=== PATIENT | male | born 1960 | race African-American/Black ===

== ENCOUNTER 2020-07-10 00:17 | Emergency (ER) | payer OTHER ==
--- NOTE | ~2020-07-10 | EMS ---
[place] [address] EMS Patient Care Report Name: KATHRYN SHERIFF Room #: REG JALIL Calvert#: [id number] Admission: 07/10/20 Attend Phys: Discharge: Date of : 62 Report #: [id number] THIS REPORT FOR: //name// Report Transmitted: 07/10/2020 00:59 EMS Care Summary [place], [place]/[facility] Incident [id number] @ 07/09/2020 23:14 Incident [id number] [place] [address] Patient KATHRYN SHERIFF Male, 60 Years 1960 Patient Address [address] [place] [address] Patient History Lung Cancer, Patient Allergies No known allergies, Patient Medications Oxygen, Prednisone, Lasix, Chief Complaint CARDIAC ARREST Disposition Transported [place] Dispatch Reason Cardiac Arrest/ Transported To [facility] Narrative EMS dispatched to [facility] for a cardiac arrest Upon arrival the pt was in the room lying on the floor on his 8 inch thick mattress while staff was trying to perform CPR, the [place] [address] EMS Patient Care Report Name: KATHRYN SHERIFF Room #: REG JALIL Calvert#: [id number] Admission: 07/10/20 Attend Phys: Discharge: Date of : 62 Report #: [id number] 2 lpm with a BVM by the [facility] staff. The pt's mattress was removed from under the pt and the pt was placed on the hard floor for CPR. Monitor pads were placed on the pt and CPR continued. A number 5 I gel was placed with End tidal on the I gel and BVM on End tidal. The pt was bagged about 10-12 breaths per minute. The End tidal occlusion was reading on the monitor so a second End tidal was replaced on the I gel which finally worked.. A Yellow IO was established in the L humoral head with a 500 bag of NS. The pt D-132. The pt was in Asystole and Epi was given and CPR continued as protocol states. A total of 7 Epi and 30 minutes of CPR were performed before contacting MD Epperson at [facility] for cardiac arrest termination. Termination was denied due to the pt's End tidal number and being 39 at the time of the report to [facility]. We were advised to continue CPR and ALS and transport to the closest facility. The pt was loaded onto the cot via scoop stretcher, secured to the cot and loaded into the ambulance. The pt was transported to [facility] with lights and sirens. 3 more Epi IV pushes were administered for a total of 10 Epi 1:10 give throughout the 54 minutes of CPR. the pt still remained in an Asystole rhythm or PEA rhythm of less than 40 upon arrival at [facility]. Pt was taken to room 1 where CPR and report continued to the attending physician. CPR continued to 0028 when TOD was called by the physician in [facility]. EMS returned to service. Full PPE was used during the arrest. Initial Vitals @23:30P: 150,EtCO2: 0, @23:39P: 45,R: 3,EtCO2: 58, @23:49P: 47,R: 17,EtCO2: 46, @23:28P: 98, @23:41P: 23,EtCO2: 83, @00:10P: 112,R: 9,EtCO2: 37, @23:46P: 62,EtCO2: 89, @23:29P: 131, @00:07R: 15,EtCO2: 51, @23:28P: 130, @23:43P: 39,R: 7,EtCO2: 52, @23:48P: 64,R: 16,EtCO2: 44, @23:33P: 34, @00:17P: 51,R: 32,EtCO2: 38, @23:33P: 38, @23:40P: 22,R: 32,EtCO2: 35, @23:33P: 134, @00:03P: 43,R: 4,EtCO2: 20, @23:44P: 50,R: 6,EtCO2: 80, @00:02P: 146,R: 9,EtCO2: 45, @23:58P: 143,R: 7,EtCO2: 44, @23:37R: 27,EtCO2: 77, @23:50P: 35,R: 15,EtCO2: 58, @00:14P: 179, [facility] [address] [place] [address] EMS Patient Care Report Name: KATHRYN SHERIFF Ayesha Room #: REG JALIL Calevrt#: [id number] Admission: 07/10/20 Attend Phys: Discharge: Date of : 62 Report #: [id number] @00:00P: 116,R: 6,EtCO2: 23, @23:37P: 34,R: 11,EtCO2: 64, @23:34P: 131,EtCO2: 0, @23:38P: 64,R: 9,EtCO2: 23, @23:45P: 43,EtCO2: 0, @00:08R: 7,EtCO2: 57, @23:26P: 35,R: 0,Pain: 0/10,GCS: 3, @23:36P: 128,Pain: 0/10,GCS: 3,EtCO2: 50,NC Suspected: false @00:14P: 86,R: 6,EtCO2: 21, @23:57P: 55,R: 10,EtCO2: 20, @00:15P: 36,R: 6,EtCO2: 42, @23:41P: 35,Glucose: 132,NC Suspected: false @23:54P: 146,R: 10,EtCO2: 47, @23:28P: 133, @00:05P: 144,R: 8,EtCO2: 18, @23:54P: 140,R: 12,EtCO2: 32, @00:12P: 65,R: 9,Pain: 0/10,GCS: 3,EtCO2: 41, @00:06P: 34,EtCO2: 56, @23:53P: 140,R: 17,Pain: 0/10,GCS: 3,EtCO2: 28,NC Suspected: false @00:12P: 108, @23:59P: 124,R: 11,EtCO2: 11, Assessments @23:30MENTAL:Unresponsive,SKIN:Pale,HEENT:Eyes: Left Pupil: 6-mm,Eyes: Right Pupil: 6-mm,Head/Face: No Abnormalities,Neck/Airway: No Abnormalities,LUNG SOUNDS:General: No Abnormalities,ABDOMEN:General: No Abnormalities,PELVIS//GI:No Abnormalities,EXTREMITIES:Capillary Refill: Right Upper: > 5 Sec,Capillary Refill: Left Upper: > 5 Sec,Left Arm: No Abnormalities,Right Arm: No Abnormalities,Left Leg: No Abnormalities,Right Leg: No Abnormalities,PULSE:Carotid: Absent,Radial: Absent,NEURO:No Abnormalities, Impression Cardiac arrest Procedures @23:54Epinephrine 1:10 - 1 Milligrams (mg) - Intraosseous (IO)Response: Unchanged@23:37Epinephrine 1:10 - 1 Milligrams (mg) - Intraosseous (IO)Response: Unchanged@00:14Epinephrine 1:10 - 1 Milligrams (mg) - Intraosseous (IO)Response: Unchanged@23:41Epinephrine 1:10 - 1 Milligrams (mg) - Intraosseous (IO)Response: Unchanged@23:28Epinephrine 1:10 - 1 Milligrams (mg) - Intraosseous (IO)Response: Unchanged@00:12Epinephrine 1:10 - 1 Milligrams (mg) - Intraosseous (IO)Response: Unchanged@23:33Epinephrine 1:10 - 1 Milligrams (mg) - Intraosseous (IO)Response: Unchanged@23:44Epinephrine 1:10 - 1 Milligrams (mg) - Intraosseous (IO)Response: Unchanged@23:48Epinephrine 1:10 - 1 Milligrams (mg) - Intraosseous (IO)Response: Unchanged@00:07Epinephrine 1:10 - 1 Milligrams (mg) - Intraosseous [address] [address] EMS Patient Care Report Name: KATHRYN SHERIFF Room #: REG JALIL Dyer.#: [id number] Admission: 07/10/20 Attend Phys: Discharge: Date of : 62 Report #: [id number] (IO)Response: Unchanged@23:24Response: UnchangedSucceeded@23:26Oxygen FlowRate: 15 Device: Bag Valve Mask (BVM) Response: UnchangedSucceeded@23:26iGEL Complications: Other (Not Listed),Response: UnchangedSucceeded@23:27Normal Saline (.9% NaCl) 1000cc (EZ-IO (Yellow 45mm)) Site: FB-Hcdohmw-BvvhKowjcqoq: UnchangedSucceeded Timeline 23:12,Call Received 23:12,Dispatch Notified 23:14,Dispatched 23:14,En Route 23:20,On Scene 23:21,At Patient 23:24,Response: UnchangedSucceeded, 23:26,Oxygen FlowRate: 15 Device: Bag Valve Mask (BVM) Response: UnchangedSucceeded, 23:26,iGEL Complications: Other (Not Listed),,Response: UnchangedSucceeded, 23:26,BP: / M,PULSE: 35,RR: 0 R,SPO2: Ox,ETCO2: ,BG: ,PAIN: 0,GCS: 3, 23:27,Normal Saline (.9% NaCl) 1000cc EZ-IO (Yellow 45mm) Site: JP-Xwxpxkx-Riaz,Response: UnchangedSucceeded, 23:28,BP: / M,PULSE: 133,RR: R,SPO2: Ox,ETCO2: ,BG: ,PAIN: ,GCS: , 23:28,Epinephrine 1:10 - 1 Milligrams (mg) - Intraosseous (IO),Response: Unchanged 23:28,BP: / M,PULSE: 130,RR: R,SPO2: Ox,ETCO2: ,BG: ,PAIN: ,GCS: , 23:28,BP: / M,PULSE: 98,RR: R,SPO2: Ox,ETCO2: ,BG: ,PAIN: ,GCS: , 23:29,BP: / M,PULSE: 131,RR: R,SPO2: Ox,ETCO2: ,BG: ,PAIN: ,GCS: , 23:30,BP: / M,PULSE: 150,RR: R,SPO2: Ox,ETCO2: 0 ,BG: ,PAIN: ,GCS: , 23:33,BP: / M,PULSE: 34,RR: R,SPO2: Ox,ETCO2: ,BG: ,PAIN: ,GCS: , 23:33,Epinephrine 1:10 - 1 Milligrams (mg) - Intraosseous (IO),Response: Unchanged 23:33,BP: / M,PULSE: 38,RR: R,SPO2: Ox,ETCO2: ,BG: ,PAIN: ,GCS: , 23:33,BP: / M,PULSE: 134,RR: R,SPO2: Ox,ETCO2: ,BG: ,PAIN: ,GCS: , 23:34,BP: / M,PULSE: 131,RR: R,SPO2: Ox,ETCO2: 0 ,BG: ,PAIN: ,GCS: , 23:36,BP: / M,PULSE: 128,RR: R,SPO2: Ox,ETCO2: 50 ,BG: ,PAIN: 0,GCS: 3, 23:37,BP: / M,PULSE: ,RR: 27 R,SPO2: Ox,ETCO2: 77 ,BG: ,PAIN: ,GCS: , 23:37,Epinephrine 1:10 - 1 Milligrams (mg) - Intraosseous (IO),Response: Unchanged 23:37,BP: / M,PULSE: 34,RR: 11 R,SPO2: Ox,ETCO2: 64 ,BG: ,PAIN: ,GCS: , 23:38,BP: / M,PULSE: 64,RR: 9 R,SPO2: Ox,ETCO2: 23 ,BG: ,PAIN: ,GCS: , 23:39,BP: / M,PULSE: 45,RR: 3 R,SPO2: Ox,ETCO2: 58 ,BG: ,PAIN: ,GCS: , 23:40,BP: / M,PULSE: 22,RR: 32 R,SPO2: Ox,ETCO2: 35 ,BG: ,PAIN: ,GCS: , 23:41,Epinephrine 1:10 - 1 Milligrams (mg) - Intraosseous (IO),Response: Unchanged 23:41,BP: / M,PULSE: 35,RR: R,SPO2: Ox,ETCO2: ,B,PAIN: ,GCS: , 23:41,BP: / M,PULSE: 23,RR: R,SPO2: Ox,ETCO2: 83 ,BG: ,PAIN: ,GCS: , 23:43,BP: / M,PULSE: 39,RR: 7 R,SPO2: Ox,ETCO2: 52 ,BG: ,PAIN: ,GCS: , [facility] [address] [place] [address] EMS Patient Care Report Name: KATHRYN SHERIFF Ayesha [facility] [id number] Admission: 07/10/20 Attend Phys: Discharge: Date of : 62 Report #: [id number] 23:44,Epinephrine 1:10 - 1 Milligrams (mg) - Intraosseous (IO),Response: Unchanged 23:44,BP: / M,PULSE: 50,RR: 6 R,SPO2: Ox,ETCO2: 80 ,BG: ,PAIN: ,GCS: , 23:45,BP: / M,PULSE: 43,RR: R,SPO2: Ox,ETCO2: 0 ,BG: ,PAIN: ,GCS: , 23:46,BP: / M,PULSE: 62,RR: R,SPO2: Ox,ETCO2: 89 ,BG: ,PAIN: ,GCS: , 23:48,Epinephrine 1:10 - 1 Milligrams (mg) - Intraosseous (IO),Response: Unchanged 23:48,BP: / M,PULSE: 64,RR: 16 R,SPO2: Ox,ETCO2: 44 ,BG: ,PAIN: ,GCS: , 23:49,BP: / M,PULSE: 47,RR: 17 R,SPO2: Ox,ETCO2: 46 ,BG: ,PAIN: ,GCS: , 23:50,BP: / M,PULSE: 35,RR: 15 R,SPO2: Ox,ETCO2: 58 ,BG: ,PAIN: ,GCS: , 23:53,BP: / M,PULSE: 140,RR: 17 R,SPO2: Ox,ETCO2: 28 ,BG: ,PAIN: 0,GCS: 3, 23:54,Epinephrine 1:10 - 1 Milligrams (mg) - Intraosseous (IO),Response: Unchanged 23:54,BP: / M,PULSE: 140,RR: 12 R,SPO2: Ox,ETCO2: 32 ,BG: ,PAIN: ,GCS: , 23:54,BP: / M,PULSE: 146,RR: 10 R,SPO2: Ox,ETCO2: 47 ,BG: ,PAIN: ,GCS: , 23:57,BP: / M,PULSE: 55,RR: 10 R,SPO2: Ox,ETCO2: 20 ,BG: ,PAIN: ,GCS: , 23:58,BP: / M,PULSE: 143,RR: 7 R,SPO2: Ox,ETCO2: 44 ,BG: ,PAIN: ,GCS: , 23:59,BP: / M,PULSE: 124,RR: 11 R,SPO2: Ox,ETCO2: 11 ,BG: ,PAIN: ,GCS: , 00:00,BP: / M,PULSE: 116,RR: 6 R,SPO2: Ox,ETCO2: 23 ,BG: ,PAIN: ,GCS: , 00:02,BP: / M,PULSE: 146,RR: 9 R,SPO2: Ox,ETCO2: 45 ,BG: ,PAIN: ,GCS: , 00:03,BP: / M,PULSE: 43,RR: 4 R,SPO2: Ox,ETCO2: 20 ,BG: ,PAIN: ,GCS: , 00:05,BP: / M,PULSE: 144,RR: 8 R,SPO2: Ox,ETCO2: 18 ,BG: ,PAIN: ,GCS: , 00:06,BP: / M,PULSE: 34,RR: R,SPO2: Ox,ETCO2: 56 ,BG: ,PAIN: ,GCS: , 00:07,Depart Scene 00:07,Epinephrine 1:10 - 1 Milligrams (mg) - Intraosseous (IO),Response: Unchanged 00:07,BP: / M,PULSE: ,RR: 15 R,SPO2: Ox,ETCO2: 51 ,BG: ,PAIN: ,GCS: , 00:08,BP: / M,PULSE: ,RR: 7 R,SPO2: Ox,ETCO2: 57 ,BG: ,PAIN: ,GCS: , 00:10,BP: / M,PULSE: 112,RR: 9 R,SPO2: Ox,ETCO2: 37 ,BG: ,PAIN: ,GCS: , 00:12,BP: / M,PULSE: 65,RR: 9 R,SPO2: Ox,ETCO2: 41 ,BG: ,PAIN: 0,GCS: 3, 00:12,Epinephrine 1:10 - 1 Milligrams (mg) - Intraosseous (IO),Response: Unchanged 00:12,BP: / M,PULSE: 108,RR: R,SPO2: Ox,ETCO2: ,BG: ,PAIN: ,GCS: , 00:14,BP: / M,PULSE: 86,RR: 6 R,SPO2: Ox,ETCO2: 21 ,BG: ,PAIN: ,GCS: , 00:14,Epinephrine 1:10 - 1 Milligrams (mg) - Intraosseous (IO),Response: Unchanged 00:14,BP: / M,PULSE: 179,RR: R,SPO2: Ox,ETCO2: ,BG: ,PAIN: ,GCS: , 00:15,BP: / M,PULSE: 36,RR: 6 R,SPO2: Ox,ETCO2: 42 ,BG: ,PAIN: ,GCS: , 00:15,At Destination 00:17,BP: / M,PULSE: 51,RR: 32 R,SPO2: Ox,ETCO2: 38 ,BG: ,PAIN: ,GCS: , 00:56,Call Closed Disclaimer v1.1 Copyright 2020 [employer] This EMS Care Summary contains data elements from the applicable legal record (which may be displayed differently). It is designed to provide pertinent [facility] [address] [place] [address] EMS Patient Care Report Name: KATHRYN SHERIFF Room #: REG JALIL Calvert#: [id number] Admission: 07/10/20 Attend Phys: Discharge: Date of : 62 Report #: [id number] information for the following purposes: continuity of care, clinical quality, and state data reporting. The complete legal record is available to ED staff and administrators of the receiving hospital in [facility]'s Patient Tracker. All data is provided "as is."
== END 2020-07-10 07:00 ==
LOC: ER 00:17
DX: I46.9 Cardiac arrest, cause unspecified (principal)